=== PATIENT | female | born 1950 | race Caucasian/White ===

== ENCOUNTER → 2021-03-05 | Outpatient (CLI) | payer MEDICARE, BC ==
[2021-03-06 12:14] LABS: RHEUMATOID ARTHRITIS FACTOR <10.0 IU/mL (0.0-13.9)
== END ==
LOC: RAD 10:46
PROVIDERS: Internal Medicine
DX: M25.541 Pain in joints of right hand (principal); M25.542 Pain in joints of left hand; D89.89 Other specified disorders involving the immune mechanism, not elsewhere classified; R76.0 Raised antibody titer; M19.041 Primary osteoarthritis, right hand
CPT/HCPCS: 36415; 73130; 82728; 83520; 85652; 86140; 86200; 86431